=== PATIENT | male | born 2000 | race Caucasian/White ===

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

== ENCOUNTER 2018-04-12 07:41 | Emergency (ER) | END 2018-04-12 08:30 | disposition home or self-care (01) ==

== ENCOUNTER 2018-05-14 20:07 | Emergency (ER) | END 2018-05-14 22:52 | disposition home or self-care (01) ==

== ENCOUNTER 2019-01-25 17:55 | Emergency (ER) | payer SELFPAY ==
[~2019-01-25] VITALS: Wt 146.5 kg
[~2019-01-25 17:55] MED LIST changes: +AMOX500C2 PO; +CEPH-443 PO; +DICY10CA40 PO; +MUPI22OI2 TOP; +NAPR-985 PO; +ONDA4TAB14 PO; +RANI150T35 PO
[2019-01-25 18:38] VITALS: BP 152/63; PULSE 93; RESP 19
== END 2019-01-25 21:20 | disposition left against medical advice (07) ==
LOC: FTE 17:55
DX: Z53.21 Procedure and treatment not carried out due to patient leaving prior to being seen by health care provider (principal)